=== PATIENT | female | born 1940 | race Caucasian/White ===

== ENCOUNTER 2017-01-13 13:00 | Inpatient (IN) | payer MEDICARE, OTHER ==
[~2017-01-13] VITALS: Ht 157.5 cm; Wt 96.0 kg
--- NOTE | ~2017-01-13 | DS ---
PATIENT'S NAME: DENILSON ORTA [facility] AGE: 76 Y [address] ROOM: [id number] [place], [place] [address] LOCATION: [facility] ADMIT DATE: 01/25/2017 Discharge Summary DISCHARGE DATE: 01/28/2017 FAMILY PHYSICIAN: Kym Fields ATTENDING PHYSICIAN: Virgilio Fierro PRIMARY DIAGNOSIS: Left knee degenerative joint disease. SECONDARY DIAGNOSIS: Hypertension. PROCEDURE: Left total knee arthroplasty. HISTORY: The patient is a pleasant 76-year-old female who presents with advanced left knee degenerative joint disease and associated severely compromised activities of daily living. The patient has decided to proceed with left total knee arthroplasty, having been thoroughly counseled regarding the risks, benefits, limitations, and alternatives. Please refer to the outpatient clinical notes and admission history and physical for this patient. HOSPITAL COURSE: The patient underwent a left total knee arthroplasty on January 25, 2017, without complications. Spinal anesthesia and peripheral nerve blocks were utilized. The patient received 24 hours of perioperative prophylactic antibiotics and remained hemodynamically stable, neurovascularly intact throughout the entire hospital course. The postoperative prophylactic deep vein thrombosis consisted of Xarelto, early mobilization, and pneumatic compression device. Daily physical therapy for gait training, transfer training, range of motion and quadriceps isometric exercises were received. The patient progressed well in physical therapy. On the date of discharge, January 28, 2017, the Mepilex dressing covering the incision was intact and no signs of infection were noted of the knee. Disposition was to [facility] Bed. DISCHARGE ACTIVITY: The patient is to bear weight as tolerates with range of motion and quadriceps isometric exercises as instructed. The operative extremity is to be elevated at least 90% of the day. The Mepilex dressing covering the patient's surgical incision is to be kept on until the patient is seen in followup. Dr. Fierro is to be notified immediately if there is any increased pain, fevers, chills, cough, erythema, or drainage. DISCHARGE MEDICATIONS: Stopped Medications: 1. Tramadol is to be held while on oxycodone. 2. The patient's extra-strength Tylenol was held. New Medications: 1. Vitamin D 26563 units p.o. weekly by 8 weeks. 2. Vitamin D3 2000 units p.o. daily. 3. Oxycodone 5 mg p.o. every 4 hours as needed for pain. PATIENT'S NAME: DENILSON ORTA [facility] AGE: 76 Y [address] ROOM: [place] [id number] LOCATION: [facility] ADMIT DATE: 01/25/2017 Discharge Summary DISCHARGE DATE: 01/28/2017 FAMILY PHYSICIAN: Kym Fields ATTENDING PHYSICIAN: Virgilio Fierro 4. Valium 5 mg half to one tab every 6 hours p.o. as needed for muscle spasms. 5. Tylenol Extra Strength 2 tabs every 6 hours as needed for pain. 6. Xarelto 10 mg p.o. daily for a total 12 days. 7. Colace 100 mg p.o. b.i.d. p.r.n. constipation. Otherwise, the patient is to continue her preadmission medications as instructed by her Internal Medicine doctor. FOLLOWUP APPOINTMENT: The patient is to follow up with Dr. Fierro in 7-9 days after discharge for initial postoperative evaluation with x-rays and staple removal. RAMILA BLAS PA-C FOR MD MERVAT ELLIS/kaity /[id number] d: 02/02/172 t: 02/02/17 1519, DISCHARGE SUMMARY
--- NOTE | ~2017-01-13 | OR ---
PATIENT'S NAME: DENILSON ORTA [facility] AGE: 76 Y [address] ROOM: [place] [address] LOCATION: [facility] ADMIT DATE: 01/25/2017 OR/Procedure Report DISCHARGE DATE: FAMILY PHYSICIAN: Kym Fields ATTENDING PHYSICIAN: NATE BREWER SURGEON: Nate Brewer MD BINGO CLERK: Joss Connell PA-C DATE OF PROCEDURE: 01/25/2017 PREOPERATIVE DIAGNOSIS: Left tricompartmental primary osteoarthritis of the knee. POSTOPERATIVE DIAGNOSIS: Left tricompartmental primary osteoarthritis of the knee. PROCEDURE PERFORMED: Left total knee arthroplasty with computer-aided navigation. ANESTHESIA: Spinal anesthesia plus peripheral nerve block. FLUIDS: See Anesthesia report. ESTIMATED BLOOD LOSS: Minimal. TOURNIQUET: Left proximal thigh at 300 mmHg. SPECIMEN: None. COMPLICATIONS: None. DISPOSITION: Stable in PACU. COUNTS: All counts were correct. IMPLANT RECORD: [employer] left total knee arthroplasty system, size 4 femur, size 4 tibia tray, size 32 asymmetric patella button, size 19 polyethylene liner, and antibiotic Simplex bone cement. INDICATIONS: Ms. Orta is a 76-year-old female, who underwent the noted procedures above. The risks, benefits, and alternatives pursuing a surgical intervention were discussed with the patient in detail. Anesthesia was consulted for their perioperative evaluation of the patient. I marked the patient's left lower extremity indicating the correct surgical site. DESCRIPTION OF PROCEDURE: Operative Report in Detail: The patient was PATIENT'S NAME: DENILSON ORTA [facility] AGE: 76 Y [address] ROOM: [place] [address] LOCATION: [facility] ADMIT DATE: 01/25/2017 OR/Procedure Report DISCHARGE DATE: FAMILY PHYSICIAN: Kym Fields ATTENDING PHYSICIAN: NATE BREWER brought from the holding area to the operating room. A time-out was performed. Spinal anesthetic was administered with peripheral nerve blocks. Ancef antibiotic was administered for perioperative prophylaxis. The left lower extremity was then prepped and draped in a sterile fashion. I turned my attention to the left knee. An Esmarch was used to exsanguinate the limb and the tourniquet was inflated to 300 mmHg. I turned my attention to the anterior aspect of the knee. I performed a median parapatellar incision through the skin, subcutaneous tissue, down through capsule. I identified the joint. I excised the anterior and posterior cruciate ligaments. I then dislocated the tibia anteriorly. I removed the medial and lateral menisci using a Bovie electrocautery device. I then turned my attention to the distal femur. Using computer-aided navigation, I placed 2 pins. Navigated for the distal femoral cut. I used an oscillating saw to make my distal femoral cut. I then turned my attention to the proximal tibia. Again, two pins were placed for my navigation device. I then placed my jig. I then made my proximal tibia cut using my oscillating saw. I then removed the components and measured my box. It was symmetric. I then irrigated the joint with a normal sterile saline solution via pulsatile lavage. I then turned my attention back to the proximal tibia. I sized it, drilled for, broached, and placed my tibial tray. I then placed my distal femoral block. I then made my distal, femoral, and chamfer cuts. I then did my box cut for the femur. I then placed my trial femur component. A size 16 spacer was used. I then turned my attention to the patella. Using my patellar jig, I used an oscillating saw to make my patellar cut. I then drilled for and placed a trial button. I took the knee through range of motion and found it to be stable from 0 to 140 degrees. The collaterals were stable. There was some laxity present with a 16 spacer. All the trial componentry was then removed. The joint was then copiously irrigated, and we prepared for cement implantation of the final components. I turned my attention to the proximal tibia and cemented my tibial component PATIENT'S NAME: DENILSON ORTA [facility] AGE: 76 Y [address] ROOM: [place] [address] LOCATION: [facility] ADMIT DATE: 01/25/2017 OR/Procedure Report DISCHARGE DATE: FAMILY PHYSICIAN: Kym Fields ATTENDING PHYSICIAN: NATE BREWER into place. Excess cement was removed from around the component. I then turned my attention to the distal femur. I implanted my femoral component and removed the cement from around it. I then placed a trial size 16 spacer. I then turned my attention to patella and cemented that into place. Once the cement cured, any excess cement was removed from the joint. I then placed a size 19 polyethylene trial spacer. I took the knee through range of motion and found the collaterals to be more stable. The knee had full range of motion after full extension to 140 degrees of flexion. The trial componentry was removed. The joint was copiously irrigated with normal sterile saline solution. I implanted a size 19 polyethylene liner and brought the knee through range of motion and found it to be stable with the same range of motion. Using a 2-0 Stratafix suture, I approximated the capsule and then approximated the deeper subcutaneous tissue with 0 Vicryl suture, followed by 2-0 Vicryl suture and heather to approximate the skin. A Mepilex dressing was placed over the knee. The tourniquet was let down. The limb reperfused after the tourniquet was let down. Compressive dressing was placed around the knee in the form of Webril and Grant bandage. The patient was then transferred from the operating room table onto the stretcher and brought to the recovery room in stable condition. There were no intraoperative complications noted. Of note, my PA, Joss Connell PA-C, played an integral role in the intraoperative care of this patient. This included preoperative positioning, intraoperative expert retraction, and closing and dressing functions. IMPRESSION: The patient is status post left total knee arthroplasty with computer-aided navigation. PLAN: The patient will be weightbearing as tolerated on the left lower extremity. She will be encouraged to rest, ice, and elevate the leg while in bed. Postoperative antibiotics will be administered per routine. DVT prophylaxis will be in the form of Lovenox. Postoperative pain control will be in the form of Percocet and IV morphine as needed for pain. The Hospitalist Service will be consulted for management of the patient's concomitant medical comorbidities. Physical Therapy and Occupational Therapy will be consulted for early ambulation and prevention of deconditioning. She will be weightbearing as tolerated on the left lower extremity. I will PATIENT'S NAME: DENILSON ORTA [facility] AGE: 76 Y [address] ROOM: [place] [address] LOCATION: [facility] ADMIT DATE: 01/25/2017 OR/Procedure Report DISCHARGE DATE: FAMILY PHYSICIAN: Kym Fields ATTENDING PHYSICIAN: NATE BREWER continue to monitor the patient closely in the postoperative period. MD JUANIS ELLIS/kaity /[id number] d: 01/25/17 1225 t: 01/25/17 1343, OPERATIVE SUMMARY
[2017-01-13] MEDS ORDERED: ULTRAM50 MG PO (13:18)
[2017-01-13] MEDS ORDERED: TUMS REGULAR ST1 TAB PO (13:18)
[2017-01-13] MEDS ORDERED: TYLENOL EXTRA500 MG PO (13:19)
[2017-01-13] MEDS ORDERED: THERA-VITE W/ B1 TAB PO (13:19)
[2017-01-13] MEDS ORDERED: STOOL SOFTENER1 EACH PO (13:21)
[2017-01-13] MEDS ORDERED: MILK OF MA400 MG/5 M PO (13:21)
[2017-01-13] MEDS ORDERED: CALCIUM MAGNES1 EACH PO (13:22)
== END 2017-01-28 11:40 | disposition swing bed (61) | DRG 470 ==
LOC: G3N 01-25 05:54
PROVIDERS: ADMIT Orthopaedic Surgery Adult Reconstructive Orthopaedic Surgery
DX: M17.0 Bilateral primary osteoarthritis of knee (principal); I10 Essential (primary) hypertension; E66.9 Obesity, unspecified; Z68.39 Body mass index [BMI] 39.0-39.9, adult; K30 Functional dyspepsia; L71.9 Rosacea, unspecified; Z95.828 Presence of other vascular implants and grafts; K58.1 Irritable bowel syndrome with constipation; M15.9 Polyosteoarthritis, unspecified; E55.9 Vitamin D deficiency, unspecified
CPT/HCPCS: C1713; C1776; J0131; J0690; J1100; J1170; J1885; J2001; J2250; J2795; J3010; J7120

== ENCOUNTER → 2017-01-20 | Outpatient (CLI) | payer MEDICARE, OTHER ==
[~2017-01-20] MED LIST: CALCIUM MAGNES1 EACH PO; MILK OF MA400 MG/5 M PO; STOOL SOFTENER1 EACH PO; THERA-VITE W/ B1 TAB PO; TUMS REGULAR ST1 TAB PO; TYLENOL EXTRA500 MG PO; ULTRAM50 MG PO
== END | disposition disaster alternative care site (69) ==
LOC: GNJRC 09:35
DX: Z47.1 Aftercare following joint replacement surgery (principal); Z96.652 Presence of left artificial knee joint